=== PATIENT | male | born 1960 | race Caucasian/White ===

== ENCOUNTER 2018-05-21 11:32 | Inpatient (IN) | payer OTHER ==
[~2018-05-21] VITALS: Ht 180.3 cm; Wt 132.0 kg
[2018-05-21 11:37] VITALS: BP 165/102
[2018-05-21] MEDS ORDERED: CLONIDINE0.1 TRANSDERM (11:50)
[2018-05-21] MEDS ORDERED: NORVASC5 M1 PO (11:50)
[2018-05-21] MEDS ORDERED: HYDROCHLOROTHIA25 M2 PO (11:50)
[2018-05-21] MEDS ORDERED: COZAAR 25 MG TA25 M2 PO (11:51)
[2018-05-21] MEDS ORDERED: TOPROL XL100 MG PO (11:51)
[2018-05-21] MEDS ORDERED: METFORMIN HCL500 MG PO (11:51)
[2018-05-21] MEDS ORDERED: KLOR-CON 1010 MEQ PO (11:52)
[2018-05-21 12:03] LABS: HEMATOCRIT 44.7 % (42.0-52.0); HEMOGLOBIN 15.1 gm/dL (14.0-18.0); MCH 27.6 pg (26.0-34.0); MCHC 33.9 g/dL (28.0-37.0); MCV 81.6 fL (80.0-100.0); MPV 9.7 fl. (7.2-11.1); NUCLEATED RBCS 0 /100WBC; PLATELET COUNT* 185 thou/uL (150-400); RBC 5.48 mil/uL (4.50-6.00); RDW-CV 14.5 % (10.5-14.5)
[2018-05-21 12:15] LABS: URINE BILIRUBIN NEGATIVE (Negative); URINE BLOOD NEGATIVE (Negative); URINE CLARITY CLEAR; URINE COLOR YELLOW; URINE GLUCOSE-RANDOM NEGATIVE (Negative); URINE KETONES TRACE (Negative); URINE LEUKOCYTES-REFLEX NEGATIVE (Negative); URINE NITRITE-REFLEX NEGATIVE (Negative); URINE PROTEIN 1+ (Negative); URINE SPECIFIC GRAVITY 1.015 (1.005-1.030); URINE UROBILINOGEN 0.2 E.U./dl (0.2-1.0)
[2018-05-21 12:22] LABS: ABSOLUTE BASOPHILS 0.2 thou/uL (0.0-0.2); ABSOLUTE EOSINOPHILS 0.6 thou/uL (0.0-0.7); ABSOLUTE LYMPHOCYTES 1.5 thou/uL (0.8-5.3); ABSOLUTE MONOCYTES 0.6 thou/uL (0.0-1.2); ABSOLUTE NEUTROPHILS 12.2 thou/uL (1.6-8.1); ANION GAP 8 mmol/L (7-16); BUN 20 mg/dL (7-18); CALCIUM 8.7 mg/dL (8.5-10.1); CHLORIDE 103 mmol/L (98-107); CO2 31 mmol/L (21-32); CREATININE 1.2 mg/dL (0.6-1.3); GLUCOSE 112 mg/dL (70-99); POTASSIUM 3.5 mmol/L (3.5-5.1); SODIUM 142 mmol/L (136-145); TROPONIN-I LEVEL <0.06 ng/mL (<0.06)
[2018-05-21 12:23] LABS: ANISOCYTOSIS 1+; PLATELET ESTIMATE ADEQUATE; POIKILOCYTOSIS 1+
[2018-05-21 12:26] LABS: ALBUMIN 3.9 g/dL (3.4-5.0); ALKALINE PHOSPHATASE 100 U/L (46-116); LIPASE 119 U/L (73-393); SGOT 16 U/L (15-37); SGPT 28 U/L (30-65); TOTAL BILIRUBIN 0.9 mg/dL (<0.1-1.0); TOTAL PROTEIN 7.5 g/dL (6.4-8.2)
--- NOTE | 2018-05-21 16:34 | EKG ---
[place] [address] ELECTROCARDIOGRAM REPORT Name: PHIL WORKMAN Room: [place] [address] ADM IN .R.#: [id number] Admission: 05/21/18 Attend Phys: Sofia Cardona Discharge: Date of : 64 Report #: [id number] THIS REPORT FOR: //name// [facility] ED Test Date: 2018-05-21 Test Time: 12:06:05 Pat Name: PHIL WORKMAN Department: Room: [facility] Gender: Structural Metal Worker: Rasheeda WILSON : 1960 Requested By: Michelle Victoria Order Number: [id number] MD: Rah Zabala Measurements Intervals Talent Rate: 81 P: 43 CO: 202 QRS: -7 QRSD: 99 T: 48 QT: 376 QTc: 437 Interpretive Statements Sinus rhythm Borderline prolonged CO interval Compared to ECG 12/16/2011 11:18:37 ST (T wave) deviation no longer present Electronically Signed On 05-21-2018 16:33:52 CDT by Rah Zabala [email or web address] <ELECTRONICALLY SIGNED> By: Rah Zabala MD, FACC 05/21/18 1633 [id number] Rah Zabala MD, [facility] /EPI
[2018-05-21 18:28] VITALS: BP 132/88
[2018-05-21 18:36] VITALS: BP 149/87
--- NOTE | 2018-05-21 18:54 | NUR ---
PATIENT ADMITTED FROM ER TO ROOM 318. ALERT AND ORIENTED X 4. NO COMPLAINTS OF PAIN AT THIS TIME. ADMISSION HISTORY DONE CHARTED. IVF AND SCHED ABX INFUSING. NPO. CALL LIGHT WITHIN REACH, WILL CONTINUE TO MONITOR.
[2018-05-22 05:09] LABS: ABSOLUTE EOSINOPHILS 0.1 thou/uL (0.0-0.7); ABSOLUTE LYMPHOCYTES 0.7 thou/uL (0.8-5.3); ABSOLUTE MONOCYTES 0.5 thou/uL (0.0-1.2); ABSOLUTE NEUTROPHILS 15.3 thou/uL (1.6-8.1); BASOPHILS 0.2 %; EOSINOPHILS 0.6 %; HEMATOCRIT 42.7 % (42.0-52.0); HEMOGLOBIN 14.3 gm/dL (14.0-18.0); LYMPHOCYTES 4.4 %; MCH 27.3 pg (26.0-34.0); MCHC 33.4 g/dL (28.0-37.0); MCV 81.7 fL (80.0-100.0); MONOCYTES 3.1 %; MPV 10.4 fl. (7.2-11.1); NUCLEATED RBCS 0 /100WBC; PLATELET COUNT* 187 thou/uL (150-400); POLYS 91.7 %; RBC 5.23 mil/uL (4.50-6.00); RDW-CV 14.6 % (10.5-14.5); WBC 16.7 thou/uL (4.0-11.0)
[2018-05-22 05:21] LABS: ALBUMIN 3.4 g/dL (3.4-5.0); CALCIUM 8.4 mg/dL (8.5-10.1); CREATININE 1.2 mg/dL (0.6-1.3); TOTAL BILIRUBIN 1.2 mg/dL (<0.1-1.0); TOTAL PROTEIN 6.8 g/dL (6.4-8.2)
[2018-05-22 05:55] LABS: POTASSIUM 2.8 mmol/L (3.5-5.1)
--- NOTE | 2018-05-22 06:55 | NUR ---
THIS NURSE ASSUMES CARE OF PT 05/21/18 AT 1930, PT IS ALERT AND ORIENTED X4, PLEASANT MOOD, PT COMPLAINS OF LLQ CRAMPING PAIN, PTS PAIN IS EFFECTIVELY MANAGED WITH IV VAN MEDS PT WEARS CPAP FROM HOME AT BEDTIME, DENIES NAUSEA, VOMITING, OR INCREASED PAIN, PT CONTINUES ON IV FLUIDS, POTASSIUM FREPLACEMENT INITIATED THIS AM, NO S/S ACUTE DISTRESS NOTED
[2018-05-22 15:15] VITALS: BP 129/81
--- NOTE | 2018-05-22 17:43 | NUR ---
PT REMAINED ALERT AND ORIENTED. POTASSIUM, CRITICAL IV POTASSIUM INFUSING, ON 6TH BAG NOW. WILL ORDER LAB REDRAW FOR 1 HOUR AFTER LAST BAG ADMINISTERED. PT UP AD BRADEN IN ROOM. PT TOLERATED CLEAR LIQUID DIET. FALL RISK PRECAUTIONS IN PLACE. HOURLY ROUNDING COMPLETED. WILL CONTINUE TO MONITOR.
[2018-05-23 07:40] VITALS: BP 128/79
[2018-05-23 10:47] LABS: ABSOLUTE BASOPHILS 0.1 thou/uL (0.0-0.2); ABSOLUTE EOSINOPHILS 0.3 thou/uL (0.0-0.7); ABSOLUTE LYMPHOCYTES 0.8 thou/uL (0.8-5.3); ABSOLUTE MONOCYTES 0.4 thou/uL (0.0-1.2); ABSOLUTE NEUTROPHILS 10.7 thou/uL (1.6-8.1); BASOPHILS 0.6 %; EOSINOPHILS 2.1 %; HEMATOCRIT 42.4 % (42.0-52.0); HEMOGLOBIN 14.1 gm/dL (14.0-18.0); LYMPHOCYTES 6.5 %; MCH 27.5 pg (26.0-34.0); MCHC 33.3 g/dL (28.0-37.0); MCV 82.7 fL (80.0-100.0); MONOCYTES 3.1 %; MPV 9.3 fl. (7.2-11.1); NUCLEATED RBCS 0 /100WBC; PLATELET COUNT* 180 thou/uL (150-400); POLYS 87.7 %; RBC 5.13 mil/uL (4.50-6.00); RDW-CV 14.9 % (10.5-14.5); WBC 12.2 thou/uL (4.0-11.0)
[2018-05-23 11:00] LABS: CALCIUM 8.3 mg/dL (8.5-10.1); CREATININE 1.2 mg/dL (0.6-1.3); POTASSIUM 3.1 mmol/L (3.5-5.1)
[2018-05-23 13:56] LABS: ALBUMIN 3.5 g/dL (3.4-5.0); CALCIUM 8.7 mg/dL (8.5-10.1); CREATININE 1.1 mg/dL (0.6-1.3); POTASSIUM 3.4 mmol/L (3.5-5.1); TOTAL BILIRUBIN 1.1 mg/dL (<0.1-1.0); TOTAL PROTEIN 7.1 g/dL (6.4-8.2)
[2018-05-23 15:30] VITALS: BP 144/97
--- NOTE | 2018-05-23 16:39 | NUR ---
PT RESTING IN ROOM. PT IS ON FULL LIQUID DIET AND TOLERATING WELL. NPO AFTER MIDNIGHT FOR REPEAT CT SCAN. FALL RISK PRECAUTIONS IN PLACE. HOURLY ROUNDING COMPLETED. POTASSIUM REPLACED ORDERED. WILL CONTINUE TO MONITOR.
[2018-05-23 21:30] VITALS: BP 147/94
[2018-05-24] VITALS: BP 140/87
[2018-05-24 04:14] LABS: ABSOLUTE EOSINOPHILS 0.2 thou/uL (0.0-0.7); ABSOLUTE LYMPHOCYTES 1.1 thou/uL (0.8-5.3); ABSOLUTE MONOCYTES 0.6 thou/uL (0.0-1.2); ABSOLUTE NEUTROPHILS 8.5 thou/uL (1.6-8.1); BASOPHILS 0.4 %; EOSINOPHILS 2.4 %; HEMATOCRIT 39.6 % (42.0-52.0); HEMOGLOBIN 13.4 gm/dL (14.0-18.0); LYMPHOCYTES 10.5 %; MCH 27.9 pg (26.0-34.0); MCHC 33.9 g/dL (28.0-37.0); MCV 82.2 fL (80.0-100.0); MONOCYTES 5.8 %; MPV 9.9 fl. (7.2-11.1); NUCLEATED RBCS 0 /100WBC; PLATELET COUNT* 175 thou/uL (150-400); POLYS 80.9 %; RBC 4.82 mil/uL (4.50-6.00); RDW-CV 14.4 % (10.5-14.5); WBC 10.5 thou/uL (4.0-11.0)
[2018-05-24 04:39] LABS: CALCIUM 8.5 mg/dL (8.5-10.1); CREATININE 1.1 mg/dL (0.6-1.3); POTASSIUM 3.2 mmol/L (3.5-5.1)
--- NOTE | 2018-05-24 05:53 | NUR ---
PT A&O X4. UP AD BRADEN. SA02 @ 95% RA. ABX INFUSED ORDERED. PT NPO AT MIDNIGHT. PT AMBULATED [place] [address] X2 BEFORE BEDTIME. BP ON LEFT HAND @2130 155/101, RH 147/94. BP CUFF REPLACED WITH BIGGER CUFF, RECHECKED ON RH @ 0100 BP 140/87. NO BP MED SCHEDULED ON SHIFT. PT CALLS OUT APPROPRIATELY. BED IN LOW POSITION, CALL LIGHT WITHIN REACH. WILL CONTINUE TO MONITOR.
[2018-05-24 07:30] VITALS: BP 145/95
[2018-05-24] MEDS ORDERED: AUGMENTIN 875-1 EACH PO (10:12)
[2018-05-24 10:24] VITALS: BP 145/95
[2018-05-24 14:16] VITALS: BP 148/94
[2018-05-24 16:00] VITALS: BP 160/98
--- NOTE | 2018-05-24 17:07 | NUR ---
PATIENT NPO THIS AM AND INTO AFTERNOON FOLLOWING CT ABD/PELVIS. PATIENT GIVEN SCHED MEDS THIS AM WITH SIP OF WATER. OK FOR CLEAR LIQUIDS THIS AFTERNOON, TOLERATING WITHOUT DIFFICULTY. PATIENT IS HAVING NO ABD PAIN. FULL LIQUID DIET FOR THIS EVENING. PATIENT POTASSIUM REPLACED PER SCHED DOSE ORDERED AND ELECTROLYTE PROTOCOL. UP AMBULATING IN ROOM WITHOUT DIFFICULTY. PATIENT C/O HEADACHE THIS EVENING, AWAITING ORDERS FOR MEDICATION.
[2018-05-25 00:05] VITALS: BP 140/88
[2018-05-25 04:48] LABS: ALBUMIN 3.4 g/dL (3.4-5.0); CALCIUM 8.7 mg/dL (8.5-10.1); CREATININE 1.1 mg/dL (0.6-1.3); TOTAL BILIRUBIN 1.1 mg/dL (<0.1-1.0)
[2018-05-25 05:08] LABS: HEMATOCRIT 42.2 % (42.0-52.0); HEMOGLOBIN 14.1 gm/dL (14.0-18.0); MCH 27.3 pg (26.0-34.0); MCHC 33.4 g/dL (28.0-37.0); MCV 81.7 fL (80.0-100.0); MPV 10.2 fl. (7.2-11.1); RBC 5.16 mil/uL (4.50-6.00); RDW-CV 14.5 % (10.5-14.5); WBC 8.7 thou/uL (4.0-11.0)
[2018-05-25 05:34] LABS: POTASSIUM 2.9 mmol/L (3.5-5.1)
--- NOTE | 2018-05-25 06:39 | NUR ---
PT SLEPT WELL OVERNIGHT WITHOUT COMPLAINTS. UP WALKING IN [place] WITH FAMILY LAST EVENING. RAC IVF INFUSING PER PUMP, ABX GIVEN ORDERED. LABS DRAWN THIS MORNING, K 2.9, ELECTROLYTE PROTOCOL IN PLACE AND PO REPLACEMENT INITIATED. CPAP ON OVERNIGHT. TOLERATING FULL LIQUID DIET WITHOUT N/V. ABLE TO USE CALL LITE AND MAKE NEEDS KNOWN.
[2018-05-25 07:45] VITALS: BP 157/103
[2018-05-25] MEDS ORDERED: METRONIDAZOLE500 M4 PO (10:38)
[2018-05-25 11:45] VITALS: BP 144/100
--- NOTE | 2018-05-25 11:56 | NUR ---
Nutrition: Pt assessed for high BMI. Admit wt was 285#, now bed wt is 291# - likely not truly over BMI of 40. Pt was admitted for abd pain, SX better. May disch if ok with suregery, pre progress note. No N/V, tolerating diet. Now Soft/fiber restricted diet is ordered. Low nutrition risk.
--- NOTE | 2018-05-25 15:01 | NUR ---
POTASSIUM REPLACED THIS AM FOR LEVEL OF 2.9, LAB DRAW CAME BACK AT 3.4 THIS AFTERNOON. PATIENT GIVEN ANOTHER 40 MEQ DOSE PRIOR TO DISCHARGE. PATIENT TOLERATING SOFT DIET, TOLERATING PO ABX. OK PER SURGERY FOR PATIENT TO DISCHARGE HOME. VERBALIZES UNDERSTANDING OF PAPERWORK AND SCRIPTS. PATIENT TAKEN OUT VIA WHEELCHAIR WITH ALL BELONGINGS.
[2018-05-25 15:03] VITALS: BP 125/97
== END 2018-05-25 15:04 | disposition home or self-care (01) | DRG 872 ==
LOC: M.ERS 11:32 → M.TBA-ER 15:52 → M.3W 15:52
PROVIDERS: Emergency Medicine; Nurse Practitioner Family; Surgery; ADMIT Internal Medicine
DX: A41.9 Sepsis, unspecified organism (principal); K57.20 Diverticulitis of large intestine with perforation and abscess without bleeding; I10 Essential (primary) hypertension; R73.03 Prediabetes; E78.5 Hyperlipidemia, unspecified; E87.6 Hypokalemia; E66.01 Morbid (severe) obesity due to excess calories; D72.829 Elevated white blood cell count, unspecified; Z68.41 Body mass index [BMI] 40.0-44.9, adult; Z90.49 Acquired absence of other specified parts of digestive tract; Z88.6 Allergy status to analgesic agent; Z88.1 Allergy status to other antibiotic agents; Z88.0 Allergy status to penicillin; Z80.8 Family history of malignant neoplasm of other organs or systems; Z82.49 Family history of ischemic heart disease and other diseases of the circulatory system

== ENCOUNTER → 2018-05-28 | Outpatient (CLI) | payer OTHER ==
[~2018-05-28] MED LIST: AUGMENTIN 875-1 EACH PO; CLONIDINE0.1 TRANSDERM; COZAAR 25 MG TA25 M2 PO; HYDROCHLOROTHIA25 M2 PO; KLOR-CON 1010 MEQ PO; METFORMIN HCL500 MG PO; METRONIDAZOLE500 M4 PO; NORVASC5 M1 PO; TOPROL XL100 MG PO
[2018-05-28 12:33] LABS: CREATININE 1.2 mg/dL (0.6-1.3); MAGNESIUM 1.9 mg/dL (1.8-2.4); POTASSIUM 3.7 mmol/L (3.5-5.1)
== END ==
LOC: M.LAB 12:06
PROVIDERS: Internal Medicine Cardiovascular Disease
DX: E87.6 Hypokalemia (principal); E86.0 Dehydration